=== PATIENT | female | born 1985 | race Caucasian/White ===

== ENCOUNTER 2017-05-14 16:57 | Emergency (ER) | payer OTHER, BC ==
[2017-05-14] MEDS ORDERED: Naproxen 500 MG Tab PO ONE (18:47)
--- NOTE | 2017-05-14 18:50 | EDM.PDOC ---
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, painful anteriorly, no radiation Left Knee Pain Score (Numeric/FACES): 7 - Related Data Allergies Allergy/AdvReac Type Severity Reaction Status Date / Time amoxicillin [From Augmentin] Allergy Rash Verified 05/14/17 17:32 clavulanic acid Allergy Rash Verified 05/14/17 17:32 [From Augmentin] Home Meds: Home Meds Naproxen [Naprosyn] 500 mg PO BID #60 tablet 05/14/17 [Rx] Past Medical History HEENT History: Reports: Impaired Vision Other HEENT History: wears glasses Respiratory History: Reports: Asthma Psychiatric History: Reports: Anxiety - Infectious Disease History Infectious Disease History: Reports: Chicken Pox - Past Surgical History GI Surgical History: Reports: Cholecystectomy Social & Family History - Family History Family Medical History: Noncontributory - Tobacco Use Smoking Status *Q: Current Every Day Smoker Years of Tobacco use: 18 Packs/Tins Daily: 1 - Caffeine Use Caffeine Use: Reports: Coffee - Recreational Drug Use Recreational Drug Use: Yes Drug Use in Last 12 Months: Yes Recreational Drug Type: Reports: Marijuana/Hashish Recreational Drug Use Frequency: Weekly Review of Systems - Review of Systems Review Of Systems: See Below Constitutional: Reports: No Symptoms Eyes: Reports: No Symptoms Ears: Reports: No Symptoms Nose: Reports: No Symptoms Mouth/Throat: Reports: No Symptoms Respiratory: Reports: No Symptoms Cardiovascular: Reports: No Symptoms GI/Abdominal: Reports: No Symptoms Genitourinary: Reports: No Symptoms Musculoskeletal: Reports: Other (RLE pain) Skin: Reports: No Symptoms Neurological: Reports: No Symptoms Psychiatric: Reports: No Symptoms ED EXAM, GENERAL - Physical Exam Exam: See Below Exam Limited By: No Limitations General Appearance: Alert, WD/WN, No Apparent Distress Extremities: Other (slight abrasion RLE above ankle anteriorly, 1-2+ tender at R tibial plateau, MCL/LCL and patella and joint line all NT, no lac, no red, no STS, XR neg) Course - Vital Signs Last Recorded V/S: Last Vital Signs Temp 36.8 C 05/14/17 17:34 Pulse 81 05/14/17 18:46 Resp 14 05/14/17 18:46 BP 119/67 05/14/17 18:46 Pulse Ox 98 05/14/17 18:46 - Orders/Labs/Meds Orders: Active Orders 24 hr Category Date Time Status Knee 3V Lt [CR] Stat Exams 05/14/17 18:15 Ordered Meds: Medications Discontinued Medications Generic Name Dose Route Start Last Admin Trade Name Cyrus PRN Reason Stop Dose Admin Naproxen 500 mg 05/14/17 18:47 Naprosyn PO 05/14/17 18:48 ONETIME ONE Departure - Departure Time of Disposition: 18:46 Disposition: Home, Self-Care 01 Condition: Good Clinical Impression: Contusion of right tibia - Discharge Information Prescriptions: Naproxen [Naprosyn] 500 mg PO BID #60 tablet Instructions: Contusion Referrals: PCP,None [Primary Care Provider] - Forms: ED Department Discharge Additional Instructions: Use ice for 10 minutes every 2 hours tonight and 4 times tomorrow. Take naprosyn 500 mg 1 tab 2 times a day for 2 weeks, longer if needed. No work tomorrow. May work in 2 days. See your doctor in 2 days. - My Orders Last 24 Hours: My Active Orders 05/14/17 18:15 Knee 3V Lt [CR] Stat - Assessment/Plan Last 24 Hours: My Active Orders 05/14/17 18:15 Knee 3V Lt [CR] Stat
--- NOTE | 2017-05-15 12:25 | CR ---
INDICATION: Left tibial plateau struck with a metal pole. LEFT KNEE: Four views of the left knee revealed no evidence of a fracture, dislocation, or other significant bone or joint abnormality. [facility]
== END 2017-05-14 18:48 | disposition home or self-care (01) ==
LOC: FB.ED 16:57
DX: S80.12XA Contusion of left lower leg, initial encounter (principal); F17.210 Nicotine dependence, cigarettes, uncomplicated; Z88.1 Allergy status to other antibiotic agents; W22.8XXA Striking against or struck by other objects, initial encounter; Y99.0 Civilian activity done for income or pay
CPT/HCPCS: 73562-LT; 99000; 99283

== ENCOUNTER 2017-06-05 08:53 | Emergency (ER) | payer BC, MEDICAID, OTHER ==
--- NOTE | 2017-06-05 09:27 | EDM.PDOC ---
ED HPI GENERAL MEDICAL PROBLEM - General Chief Complaint: Chest Pain Stated Complaint: CHEST PAIN FAST HEART Time Seen by Provider: 06/05/17 08:53 Source of Information: Reports: Patient History Limitations: Reports: No Limitations - History of Present Illness INITIAL COMMENTS - FREE TEXT/NARRATIVE: 31 years old w f -smoker-came to the ed after she felt dizzy at work with C/P 9/ 10. 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 Pt was moving last weekend and was lifting a few furniture. C/P is constant but worse ( a little) when taking a deep breath. No trauma. 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.) Associated Symptoms: Reports: Other (dizzy) L anterior chest Pain Score (Numeric/FACES): 5 - Related Data Allergies Allergy/AdvReac Type Severity Reaction Status Date / Time amoxicillin [From Augmentin] Allergy Rash Verified 06/05/17 09:13 clavulanic acid Allergy Rash Verified 06/05/17 09:13 [From Augmentin] Home Meds: Home Meds Cetirizine [ZyrTEC] 10 mg PO DAILY 06/05/17 [History] atorvaSTATin [Lipitor] 10 mg PO BEDTIME 06/05/17 [History] Past Medical History HEENT History: Reports: Impaired Vision Other HEENT History: wears glasses Respiratory History: Reports: Asthma Psychiatric History: Reports: Anxiety - Infectious Disease History Infectious Disease History: Reports: Chicken Pox - Past Surgical History GI Surgical History: Reports: Cholecystectomy Social & Family History - Family History Family Medical History: Noncontributory - Tobacco Use Smoking Status *Q: Current Every Day Smoker Years of Tobacco use: 18 Packs/Tins Daily: 1 - Caffeine Use Caffeine Use: Reports: Coffee - Recreational Drug Use Recreational Drug Use: Yes Drug Use in Last 12 Months: Yes Recreational Drug Type: Reports: Marijuana/Hashish Recreational Drug Use Frequency: Weekly ED ROS GENERAL - Review of Systems Review Of Systems: See Below Constitutional: Reports: No Symptoms HEENT: Reports: No Symptoms Respiratory: Reports: No Symptoms Cardiovascular: Reports: Chest Pain Endocrine: Reports: No Symptoms GI/Abdominal: Reports: No Symptoms : Reports: No Symptoms Musculoskeletal: Reports: No Symptoms Skin: Reports: No Symptoms Neurological: Reports: No Symptoms Psychiatric: Reports: No Symptoms Hematologic/Lymphatic: Reports: No Symptoms Immunologic: Reports: No Symptoms ED EXAM, GENERAL - Physical Exam Exam: See Below Exam Limited By: No Limitations General Appearance: Alert, WD/WN, Mild Distress, Obese Eye Exam: Bilateral Eye: Normal Inspection Ears: Normal External Exam Ear Exam: Bilateral Ear: Auricle Normal Nose: Normal Inspection, Normal Mucosa Throat/Mouth: Normal Inspection, Normal Lips Head: Atraumatic, Normocephalic Neck: Normal Inspection Respiratory/Chest: No Respiratory Distress, Lungs Clear, Normal Breath Sounds, No Accessory Muscle Use, Other (mildly tender ant chest wall) Cardiovascular: Normal Peripheral Pulses, Regular Rate, Rhythm, No Edema, No Gallop Peripheral Pulses: 1+: Radial (R), Femoral (L) GI/Abdominal: Normal Bowel Sounds, Soft, Non-Tender, No Organomegaly (Female) Exam: Deferred Rectal (Female) Exam: Deferred Back Exam: Normal Inspection, Full Range of Motion Extremities: Normal Inspection, Normal Range of Motion, Non-Tender, No Pedal Edema, Normal Capillary Refill Neurological: Alert, Oriented, CN II-XII Intact, Normal Cognition, Normal Gait Psychiatric: Normal Affect, Normal Mood Skin Exam: Warm, Dry, Intact, Normal Color, No Rash Lymphatic: No Adenopathy EKG INTERPRETATION EKG Date: 06/05/17 Time: 09:05 Rhythm: NSR Rate (Beats/Min): 95 Canvas: Normal P-Wave: Present QRS: Normal ST-T: Normal QT: Normal Comparison: NA - No Prior EKG Course - Vital Signs Text/Narrative:: 31 years old w f -smoker-came to the ed after she felt dizzy at work with C/P 9/ 10. 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 Pt was moving last weekend and was lifting a few furniture. C/P is constant but worse ( a little) when taking a deep breath. No trauma. BP: 116/69 pulse 98 RR 17 Pulse ox 99 PE: Obese 31 y.o.w.f wit cp and dizziness, subsiding in the ED labs: CBC, BMP trop and D Dimer were neg. Imaging: Not indicated ECG: NSR, no acute ST/T wave elevation Riskfactors: Pos FH of CAD, High cholesterol, obese, tobacco use. Impression: Atypical Chest pain Tx: ASA, Toradol, Zofran 9.45 am: Consultation: Dr. Burkett: If Troponin and D dImer neg, Stress Test in clinic tomorrow. Does not accept patient for admission Reexam: Improved, Nausea subsided C/P was 09/08 with insp on D/C Plan: D/C with instructions Last Recorded V/S: Last Vital Signs Temp 36.6 C 06/05/17 08:55 Pulse 92 06/05/17 08:55 Resp 18 06/05/17 10:15 BP 101/62 06/05/17 10:15 Pulse Ox 97 06/05/17 10:15 - Orders/Labs/Meds Orders: Active Orders 24 hr Category Date Time Status EKG Documentation Completion [RC] ASDIRECTED Care 06/05/17 09:20 Active EKG 12 Lead [EK] Routine Ther 06/05/17 09:20 Ordered Labs: Laboratory Tests 06/05/17 06/05/17 06/05/17 Range/Units 09:05 09:05 09:05 WBC 8.4 (4.5-12.0) X10-3/uL RBC 4.71 (3.23-5.20) x10(6)uL Hgb 15.1 (11.5-15.5) g/dL Hct 43.7 (30.0-51.3) % MCV 92.9 (80-96) fL MCH 32.0 (27.7-33.6) pg MCHC 34.5 (32.2-35.4) g/dL RDW 12.2 (11.5-15.5) % Plt Count 214 (125-369) X10(3)uL MPV 9.4 (7.4-10.4) fL Neut % (Auto) 70.3 (46-82) % Lymph % (Auto) 22.0 (13-37) % [place] % (Auto) 5.0 (4-12) % Eos % (Auto) 2 (1.0-5.0) % Baso % (Auto) 1 (0-2) % Neut # (Auto) 5.8 (1.6-8.3) # Lymph # (Auto) 1.9 (0.6-5.0) # [place] # (Auto) 0.4 (0.0-1.3) # Eos # (Auto) 0.2 (0.0-0.8) # Baso # (Auto) 0.1 (0.0-0.2) # PT (8.7-11.1) INR (0.89-1.13) D-Dimer, Quantitative 158 (100-400) ng/mL Sodium 138 (135-145) mmol/L Potassium 4.0 (3.5-5.3) mmol/L Chloride 106 (100-110) mmol/L Carbon Dioxide 25 (21-32) mmol/L BUN 12 (7-18) mg/dL Creatinine 1.0 (0.55-1.02) mg/dL Est Cr Clr Drug Dosing 75.61 mL/min Estimated GFR (MDRD) > 60 (>60) BUN/Creatinine Ratio 12.0 (9-20) Glucose 105 (80-116) mg/dL Calcium 9.2 (8.6-10.2) mg/dL Troponin I (<0.017-0.056) ng/mL 06/05/17 06/05/17 Range/Units 09:05 09:05 WBC (4.5-12.0) X10-3/uL RBC (3.23-5.20) x10(6)uL Hgb (11.5-15.5) g/dL Hct (30.0-51.3) % MCV (80-96) fL MCH (27.7-33.6) pg MCHC (32.2-35.4) g/dL RDW (11.5-15.5) % Plt Count (125-369) X10(3)uL MPV (7.4-10.4) fL Neut % (Auto) (46-82) % Lymph % (Auto) (13-37) % [place] % (Auto) (4-12) % Eos % (Auto) (1.0-5.0) % Baso % (Auto) (0-2) % Neut # (Auto) (1.6-8.3) # Lymph # (Auto) (0.6-5.0) # [place] # (Auto) (0.0-1.3) # Eos # (Auto) (0.0-0.8) # Baso # (Auto) (0.0-0.2) # PT 10.5 (8.7-11.1) INR 1.04 (0.89-1.13) D-Dimer, Quantitative (100-400) ng/mL Sodium (135-145) mmol/L Potassium (3.5-5.3) mmol/L Chloride (100-110) mmol/L Carbon Dioxide (21-32) mmol/L BUN (7-18) mg/dL Creatinine (0.55-1.02) mg/dL Est Cr Clr Drug Dosing mL/min Estimated GFR (MDRD) (>60) BUN/Creatinine Ratio (9-20) Glucose (80-116) mg/dL Calcium (8.6-10.2) mg/dL Troponin I < 0.017 L (<0.017-0.056) ng/mL Meds: Medications Discontinued Medications Generic Name Dose Route Start Last Admin Trade Name Freq PRN Reason Stop Dose Admin Aspirin 324 mg 06/05/17 09:29 06/05/17 09:15 Aspirin PO 06/05/17 09:30 324 mg ONETIME ONE Administration Sodium Chloride 1,000 mls @ 125 mls/hr 06/05/17 09:30 06/05/17 09:49 Normal Saline IV 125 mls/hr ASDIRECTED LEMUEL Administration Ketorolac Tromethamine 30 mg 06/05/17 10:08 06/05/17 10:12 Toradol IVPUSH 06/05/17 10:09 30 mg ONETIME ONE Administration Ondansetron HCl 8 mg 06/05/17 10:08 06/05/17 10:12 Zofran Odt PO 06/05/17 10:09 8 mg ONETIME ONE Administration Departure - Departure Time of Disposition: 10:06 Disposition: Home, Self-Care 01 Condition: Good Clinical Impression: Atypical chest pain Instructions: Nonspecific Chest Pain Referrals: PCP,None [Primary Care Provider] - Forms: ED Department Discharge, ED Return to Work/School Form Additional Instructions: Please continue your current meds. Please quit tobacco use, please follow up with your primary medical doctor in morning for a cardiac stress test, call for appt. Please come back to the ER if your symptoms get worse acutely - My Orders Last 24 Hours: My Active Orders 06/05/17 09:20 EKG Documentation Completion [RC] ASDIRECTED EKG 12 Lead [EK] Routine - Assessment/Plan Last 24 Hours: My Active Orders 06/05/17 09:20 EKG Documentation Completion [RC] ASDIRECTED EKG 12 Lead [EK] Routine
[2017-06-05] MEDS ORDERED: Aspirin 81 MG Tab.Chew PO ONE (09:29)
[2017-06-05] MEDS ORDERED: Sodium Chloride 0.9% 1,000 ML IV SCH (09:30)
[2017-06-05] MEDS ORDERED: Ketorolac 30 MG/ML SDV IVPUSH ONE (10:08)
[2017-06-05] MEDS ORDERED: Ondansetron 8 MG Tab.DIS PO ONE (10:08)
== END 2017-06-05 10:27 | disposition home or self-care (01) ==
LOC: FB.ED 08:53
DX: R07.89 Other chest pain (principal); F17.210 Nicotine dependence, cigarettes, uncomplicated; Z88.1 Allergy status to other antibiotic agents
CPT/HCPCS: 36415; 80048; 84484; 85025; 85379; 85610; 93005; 96361; 96374; 99285; A9270; J1885; J7040

== ENCOUNTER 2017-06-27 10:12 | Emergency (ER) | payer BC, MEDICAID, OTHER ==
--- NOTE | 2017-06-27 10:37 | EDM.PDOC ---
ED HPI GENERAL MEDICAL PROBLEM - General Chief Complaint: Gastrointestinal Problem Stated Complaint: stomach flu Time Seen by Provider: 06/27/17 10:12 Source of Information: Reports: Patient History Limitations: Reports: No Limitations - History of Present Illness INITIAL COMMENTS - FREE TEXT/NARRATIVE: 31 y.o.smoker came to the ed due to 8 MS since yesterday with nausea. Pt did not have a BM since 4 am. But felt nauseated. No other acute med issues. Pt stated she has no money to buy imodium. BP 109/80 pulse 109 Temp 36.8 pulse ox 97% on RA Onset Date: 06/26/17 Onset Time: 08:00 Duration: Day(s):, Intermittent Location: Reports: Abdomen Quality: Reports: Ache Severity: Mild Improves with: Reports: Rest Worsens with: Reports: Movement Context: Reports: Other (N/V/D none since arrival to the ED) - Related Data Allergies Allergy/AdvReac Type Severity Reaction Status Date / Time amoxicillin [From Augmentin] Allergy Rash Verified 06/27/17 10:31 clavulanic acid Allergy Rash Verified 06/27/17 10:31 [From Augmentin] Home Meds: Home Meds atorvaSTATin [Lipitor] 10 mg PO BEDTIME 06/05/17 [History] Albuterol [Proventil HFA] 6.7 gm INH Q4H PRN 06/27/17 [History] Loperamide [Imodium] 2 mg PO Q6H PRN #8 cap 06/27/17 [Rx] Ondansetron [Zofran ODT] 4 mg PO Q6H PRN #16 tab.dis 06/27/17 [Rx] Past Medical History HEENT History: Reports: Impaired Vision Other HEENT History: wears glasses Cardiovascular History: Reports: High Cholesterol Respiratory History: Reports: Asthma Gastrointestinal History: Reports: Cholelithiasis, GERD Genitourinary History: Reports: None 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 - Infectious Disease History Infectious Disease History: Reports: Chicken Pox - Past Surgical History GI Surgical History: Reports: Cholecystectomy Social & Family History - Family History Family Medical History: Noncontributory - Tobacco Use Smoking Status *Q: Current Every Day Smoker Years of Tobacco use: 18 Packs/Tins Daily: 1 - Caffeine Use Caffeine Use: Reports: Coffee - Recreational Drug Use Recreational Drug Use: Yes Drug Use in Last 12 Months: Yes Recreational Drug Type: Reports: Marijuana/Hashish Recreational Drug Use Frequency: Weekly ED ROS GENERAL - Review of Systems Review Of Systems: See Below Constitutional: Reports: No Symptoms HEENT: Reports: No Symptoms Respiratory: Reports: No Symptoms Cardiovascular: Reports: No Symptoms Endocrine: Reports: No Symptoms GI/Abdominal: Reports: Diarrhea : Reports: No Symptoms Musculoskeletal: Reports: No Symptoms Skin: Reports: No Symptoms Neurological: Reports: No Symptoms Psychiatric: Reports: No Symptoms Hematologic/Lymphatic: Reports: No Symptoms Immunologic: Reports: No Symptoms ED EXAM, GI/ABD - Physical Exam Exam: See Below Exam Limited By: No Limitations General Appearance: Alert, WD/WN, Mild Distress Eyes: Bilateral: Normal Appearance Ears: Normal External Exam Nose: Normal Inspection Throat/Mouth: Normal Inspection Head: Atraumatic, Normocephalic Neck: Normal Inspection, Supple, Non-Tender Respiratory/Chest: No Respiratory Distress, Lungs Clear, Normal Breath Sounds Cardiovascular: Normal Peripheral Pulses, Regular Rate, Rhythm, No Edema, No JVD , No Murmur, No Rub GI/Abdominal Exam: Normal Bowel Sounds, Soft, Non-Tender, No Organomegaly, No Mass, Pelvis Stable (Female) Exam: Deferred Rectal (Female) Exam: Deferred Back Exam: Normal Inspection Extremities: Normal Inspection Neurological: Alert, Oriented, CN II-XII Intact, Normal Cognition, Normal Gait Psychiatric: Normal Affect, Normal Mood Skin Exam: Warm, Dry, Intact, Normal Color, No Rash Lymphatic: No Adenopathy Course - Vital Signs Text/Narrative:: 31 y.o.smoker came to the ed due to 8 MS since yesterday with nausea. Pt did not have a BM since 4 am. But felt nauseated. No other acute med issues. Pt stated she has no money to buy imodium. BP 109/80 pulse 109 Temp 36.8 pulse ox 97% on RA PE: WNWD W F NAD C/O Nausea Impression: Gastroenteritis Tx: Zofran. Pt was not able to pass stool Reexam: Improved Plan: D/C with instructions Last Recorded V/S: Last Vital Signs Temp 36.8 C 06/27/17 10:25 Pulse Resp 17 06/27/17 10:25 BP 104/74 06/27/17 10:50 Pulse Ox 97 06/27/17 10:25 - Orders/Labs/Meds Meds: Medications Discontinued Medications Generic Name Dose Route Start Last Admin Trade Name Freq PRN Reason Stop Dose Admin Ondansetron HCl 8 mg 06/27/17 10:32 06/27/17 10:43 Zofran Odt PO 06/27/17 10:33 8 mg ONETIME ONE Administration Departure - Departure Time of Disposition: 10:34 Disposition: Home, Self-Care 01 Condition: Good Clinical Impression: Diarrhea Qualifiers: Diarrhea type: unspecified type Qualified Code(s): R19.7 - Diarrhea, unspecified - Discharge Information Prescriptions: Loperamide [Imodium] 2 mg PO Q6H PRN #8 cap PRN Reason: loose stool Ondansetron [Zofran ODT] 4 mg PO Q6H PRN #16 tab.dis PRN Reason: Nausea Instructions: Nausea, Adult, Viral Gastroenteritis, Adult Referrals: PCP,None [Primary Care Provider] - Forms: ED Department Discharge, ED Return to Work/School Form Additional Instructions: Collect stool sample and bring back to hospital for testing. Continue to drink plenty of fluids. Please take Zofran for nausea, please f/u, come back to the ED if your symptoms get worse acutely.
[2017-06-27] MEDS: Ondansetron 8 MG Tab.DIS PO ONE (10:43)
== END 2017-06-27 10:53 | disposition home or self-care (01) ==
LOC: FB.ED 10:12
DX: K52.9 Noninfective gastroenteritis and colitis, unspecified (principal); E78.00 Pure hypercholesterolemia, unspecified; Z88.1 Allergy status to other antibiotic agents; Z88.8 Allergy status to other drugs, medicaments and biological substances; F17.210 Nicotine dependence, cigarettes, uncomplicated
CPT/HCPCS: 99283; A9270

== ENCOUNTER 2017-07-24 23:00 | Emergency (ER) | payer MEDICAID ==
--- NOTE | 2017-07-25 00:18 | EDM.PDOC ---
ED HPI GENERAL MEDICAL PROBLEM - General Chief Complaint: Gastrointestinal Problem Stated Complaint: NOT FEELING WELL Time Seen by Provider: 07/24/17 23:00 Source of Information: Reports: Patient, Family History Limitations: Reports: No Limitations - History of Present Illness INITIAL COMMENTS - FREE TEXT/NARRATIVE: 31 y.o.w.f s/o Histerectomy, came to the ed with more then 2 ms today. No Blood in stool, no Diet change. No nausea, no dizziness or any other acute medical issues. BP 126/77 HR 113 Temp 36.8 pulse ox 98% on RA Onset Date: 07/24/17 Onset Time: 08:00 Duration: Day(s): Location: Reports: Abdomen Quality: Reports: Other (loose stool) Severity: Moderate Improves with: Reports: None Worsens with: Reports: None Context: Reports: Other (20 BMs today) Associated Symptoms: Reports: No Other Symptoms whole body Pain Score (Numeric/FACES): 8 - Related Data Allergies Allergy/AdvReac Type Severity Reaction Status Date / Time amoxicillin [From Augmentin] Allergy Rash Verified 07/24/17 23:11 clavulanic acid Allergy Rash Verified 07/24/17 23:11 [From Augmentin] Home Meds: Home Meds atorvaSTATin [Lipitor] 5 mg PO BEDTIME 06/05/17 [History] Albuterol [Proventil HFA] 6.7 gm INH Q4H PRN 06/27/17 [History] Loperamide [Imodium] 2 mg PO Q6H PRN #8 cap 06/27/17 [Rx] Ondansetron [Zofran ODT] 4 mg PO Q6H PRN #16 tab.dis 06/27/17 [Rx] Past Medical History HEENT History: Reports: Impaired Vision Other HEENT History: wears glasses Cardiovascular History: Reports: High Cholesterol Other Cardiovascular History: low BP Respiratory History: Reports: Asthma Gastrointestinal History: Reports: Cholelithiasis, GERD Genitourinary History: Reports: None 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 - Infectious Disease History Infectious Disease History: Reports: Chicken Pox - Past Surgical History GI Surgical History: Reports: Cholecystectomy Female Surgical History: Reports: Hysterectomy, Tubal Ligation Social & Family History - Family History Family Medical History: Noncontributory - Tobacco Use Smoking Status *Q: Current Every Day Smoker Years of Tobacco use: 18 Packs/Tins Daily: 1 - Caffeine Use Caffeine Use: Reports: Coffee, Energy Drinks, Soda, Tea - Recreational Drug Use Recreational Drug Use: No Drug Use in Last 12 Months: Yes Recreational Drug Type: Reports: Marijuana/Hashish Recreational Drug Use Frequency: Weekly ED ROS GENERAL - Review of Systems Review Of Systems: See Below Constitutional: Reports: No Symptoms HEENT: Reports: No Symptoms Respiratory: Reports: No Symptoms Cardiovascular: Reports: No Symptoms Endocrine: Reports: No Symptoms GI/Abdominal: Reports: Other (diarrhea) : Reports: No Symptoms Musculoskeletal: Reports: No Symptoms Skin: Reports: No Symptoms Neurological: Reports: No Symptoms Psychiatric: Reports: No Symptoms Hematologic/Lymphatic: Reports: No Symptoms Immunologic: Reports: No Symptoms ED EXAM, GI/ABD - Physical Exam Exam: See Below Exam Limited By: No Limitations General Appearance: Alert, WD/WN, No Apparent Distress Eyes: Bilateral: Normal Appearance Ears: Normal External Exam, Normal Canal Nose: Normal Inspection, Normal Mucosa Throat/Mouth: Normal Inspection, Normal Lips, Normal Oropharynx, Normal Voice, No Airway Compromise Head: Atraumatic, Normocephalic Neck: Normal Inspection, Supple, Non-Tender Respiratory/Chest: No Respiratory Distress, Lungs Clear, Normal Breath Sounds Cardiovascular: Normal Peripheral Pulses, Regular Rate, Rhythm, No Edema GI/Abdominal Exam: Normal Bowel Sounds (Female) Exam: Deferred Rectal (Female) Exam: Deferred Back Exam: Normal Inspection Extremities: Normal Inspection, Normal Range of Motion, Non-Tender, No Pedal Edema Neurological: Alert, Oriented, CN II-XII Intact, Normal Cognition, Normal Gait, No Motor/Sensory Deficits Psychiatric: Normal Affect Skin Exam: Warm, Dry, Intact Lymphatic: No Adenopathy Course - Vital Signs Text/Narrative:: 31 y.o.w.f s/o Histerectomy, came to the ed with more then 2 ms today. No Blood in stool, no Diet change. No nausea, no dizziness or any other acute medical issues. BP 126/77 HR 113 Temp 36.8 pulse ox 98% on RA PE: WNWD WF NAD Labs: CBC, BMP and UA neg Cx is pending Impression: Diarrhea, cause not determined Tx: Imodium Reexam: Improved Plan: D/C with instructions Last Recorded V/S: Last Vital Signs Temp 36.9 C 07/25/17 00:23 Pulse 114 H 07/25/17 00:23 Resp 17 07/25/17 00:23 BP 106/74 07/25/17 00:23 Pulse Ox 98 07/25/17 00:23 - Orders/Labs/Meds Orders: Active Orders 24 hr Category Date Time Status CULTURE-STOOL [MREF] Stat Lab 07/25/17 00:09 Ordered LACTOFERRIN, FECAL BY LAVERN Stat Lab 07/24/17 23:23 Received Labs: Laboratory Tests 07/24/17 07/24/17 07/24/17 Range/Units 23:35 23:35 23:49 WBC 7.6 (4.5-12.0) X10-3/uL RBC 4.79 (3.23-5.20) x10(6)uL Hgb 14.7 (11.5-15.5) g/dL Hct 44.4 (30.0-51.3) % MCV 92.7 (80-96) fL MCH 30.7 (27.7-33.6) pg MCHC 33.1 (32.2-35.4) g/dL RDW 12.0 (11.5-15.5) % Plt Count 211 (125-369) X10(3)uL MPV 9.3 (7.4-10.4) fL Neut % (Auto) 71.3 (46-82) % Lymph % (Auto) 22.5 (13-37) % [place] % (Auto) 4.8 (4-12) % Eos % (Auto) 1 (1.0-5.0) % Baso % (Auto) 1 (0-2) % Neut # (Auto) 5.4 (1.6-8.3) # Lymph # (Auto) 1.7 (0.6-5.0) # [place] # (Auto) 0.4 (0.0-1.3) # Eos # (Auto) 0.1 (0.0-0.8) # Baso # (Auto) 0.0 (0.0-0.2) # Sodium 142 (135-145) mmol/L Potassium 3.5 (3.5-5.3) mmol/L Chloride 107 (100-110) mmol/L Carbon Dioxide 24 (21-32) mmol/L BUN 10 (7-18) mg/dL Creatinine 0.9 (0.55-1.02) mg/dL Est Cr Clr Drug Dosing TNP Estimated GFR (MDRD) > 60 (>60) BUN/Creatinine Ratio 11.1 (9-20) Glucose 117 H (80-116) mg/dL Calcium 8.6 (8.6-10.2) mg/dL Urine Color Yellow (YELLOW) Urine Appearance Clear (CLEAR) Urine pH 5.0 (5.0-6.5) Ur Specific [place] 1.025 (1.010-1.025) Urine Protein Negative (NEGATIVE) mg/dL Urine Glucose (UA) Normal (NEGATIVE) mg/dL Urine Ketones Negative (NEGATIVE) mg/dL Urine Occult Blood Trace (NEGATIVE) Urine Nitrite Negative (NEGATIVE) Urine Bilirubin Small H (NEGATIVE) Urine Urobilinogen Normal (NEGATIVE) mg/dL Ur Leukocyte Esterase Negative (NEGATIVE) Urine RBC 0-5 (0) Urine WBC 0-5 (0) Ur Squamous Epith Cells Moderate H (NS,R,O) Urine Bacteria Few H (NS) Meds: Medications Discontinued Medications Generic Name Dose Route Start Last Admin Trade Name Freq PRN Reason Stop Dose Admin Loperamide HCl 4 mg 07/25/17 00:13 07/25/17 00:19 Imodium PO 07/25/17 00:14 4 mg ASDIRECTED STA Administration Departure - Departure Time of Disposition: 00:18 Disposition: Home, Self-Care 01 Condition: Good Clinical Impression: Diarrhea Qualifiers: Diarrhea type: unspecified type Qualified Code(s): R19.7 - Diarrhea, unspecified - Discharge Information Instructions: Diarrhea, Adult Referrals: PCP,None [Primary Care Provider] - Forms: ED Department Discharge, ED Return to Work/School Form Additional Instructions: Please increase water intake, please take imodium as instructed, please f/u, come back if your symptoms get worse acutely. - My Orders Last 24 Hours: My Active Orders 07/24/17 23:23 LACTOFERRIN, FECAL BY LAVERN Stat 07/25/17 00:09 CULTURE-STOOL [MREF] Stat - Assessment/Plan Last 24 Hours: My Active Orders 07/24/17 23:23 LACTOFERRIN, FECAL BY LAVERN Stat 07/25/17 00:09 CULTURE-STOOL [MREF] Stat
[2017-07-25] MEDS: Loperamide 2 MG Cap PO STA (00:19)
== END 2017-07-25 00:26 | disposition home or self-care (01) ==
LOC: FB.ED 23:00
DX: R19.7 Diarrhea, unspecified (principal); E78.00 Pure hypercholesterolemia, unspecified; J45.909 Unspecified asthma, uncomplicated; K21.9 Gastro-esophageal reflux disease without esophagitis; F17.210 Nicotine dependence, cigarettes, uncomplicated; Z88.1 Allergy status to other antibiotic agents
CPT/HCPCS: 36415; 80048; 81001; 83630; 85025; 99284; A9270

== ENCOUNTER 2017-12-11 16:59 | Emergency (ER) | payer MEDICAID ==
--- NOTE | 2017-12-11 17:29 | EDM.PDOC ---
ED HPI GENERAL MEDICAL PROBLEM - General Chief Complaint: Gastrointestinal Problem Stated Complaint: LOWER ABD PAIN Time Seen by Provider: 12/11/17 17:15 Source of Information: Reports: Patient History Limitations: Reports: No Limitations - History of Present Illness INITIAL COMMENTS - FREE TEXT/NARRATIVE: Tammy comes into [facility] ED with a 48 hr hx of pelvic pain characterized as sharp and crampy involving both the R&LLQs. Pain does not radiate into the back , and is not positional. There are no corresponding sxs of dysuria, frequency, vaginal discharge, diarrhea or flatulence. There has been more recent nausea today, with no emesis. She has a surgical menopause, and is off HRP. There has been no fever, chills, or sweats. She took 2 Naproxen today for pain control. lower abdomen Pain Score (Numeric/FACES): 7 - Related Data Allergies Allergy/AdvReac Type Severity Reaction Status Date / Time amoxicillin [From Augmentin] Allergy Rash Verified 12/11/17 17:10 clavulanic acid Allergy Rash Verified 12/11/17 17:10 [From Augmentin] Home Meds: Home Meds Albuterol [Proventil HFA] 6.7 gm INH Q4H PRN 06/27/17 [History] Loperamide [Imodium] 2 mg PO Q6H PRN #8 cap 06/27/17 [Rx] Ondansetron [Zofran ODT] 4 mg PO Q6H PRN #16 tab.dis 06/27/17 [Rx] Cetirizine [ZyrTEC] 10 mg PO DAILY 12/11/17 [History] Pravastatin [Pravachol] 40 mg PO BEDTIME 12/11/17 [History] Past Medical History HEENT History: Reports: Impaired Vision Other HEENT History: wears glasses Cardiovascular History: Reports: High Cholesterol Other Cardiovascular History: low BP Respiratory History: Reports: Asthma Gastrointestinal History: Reports: Cholelithiasis, GERD Genitourinary History: Reports: None [employer]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 - Infectious Disease History Infectious Disease History: Reports: Chicken Pox - Past Surgical History GI Surgical History: Reports: Cholecystectomy Female Surgical History: Reports: Hysterectomy, Tubal Ligation Social & Family History - Family History Family Medical History: Noncontributory - Caffeine Use Caffeine Use: Reports: Coffee, Energy Drinks, Soda, Tea ED ROS GENERAL - Review of Systems Review Of Systems: See Below Constitutional: Reports: Malaise, Decreased Appetite HEENT: Reports: No Symptoms Respiratory: Reports: No Symptoms Cardiovascular: Reports: No Symptoms Endocrine: Reports: No Symptoms GI/Abdominal: Reports: Abdominal Pain, Decreased Appetite, Nausea, Vomiting : Reports: No Symptoms Musculoskeletal: Reports: No Symptoms Skin: Reports: No Symptoms Neurological: Reports: No Symptoms Psychiatric: Reports: No Symptoms Hematologic/Lymphatic: Reports: No Symptoms Immunologic: Reports: No Symptoms ED EXAM, GI/ABD - Physical Exam Exam: See Below Exam Limited By: No Limitations General Appearance: Alert, WD/WN, Mild Distress, Obese Eyes: Bilateral: Normal Appearance, EOMI Ears: Normal External Exam Nose: Normal Inspection Throat/Mouth: Normal Inspection, Normal Lips, Normal Teeth, Normal Gums, Normal Oropharynx, Normal Voice, No Airway Compromise Head: Normocephalic Neck: Normal Inspection, Supple, Non-Tender, Full Range of Motion Respiratory/Chest: Lungs Clear, Normal Breath Sounds, Chest Non-Tender Cardiovascular: Normal Peripheral Pulses, Regular Rate, Rhythm, No Murmur GI/Abdominal Exam: Normal Bowel Sounds, Soft, No Organomegaly, No Distention, No Mass, Guarding (R&LLQ just above the pelvic brim) (Female) Exam: Normal External Exam, Normal Bimanual Exam (surgical pelvic, exam performed with RN in attendance) Rectal (Female) Exam: Normal Exam Back Exam: Normal Inspection Extremities: Normal Inspection Neurological: Alert, Oriented, CN II-XII Intact, Normal Cognition, No Motor/ Sensory Deficits Psychiatric: Normal Affect, Anxious Skin Exam: Warm, Dry, Intact Lymphatic: No Adenopathy Course - Vital Signs Text/Narrative:: Tammy was assessed at the [facility] ED, and initial screening labs were all satisfactory. She consented to an ABD-PELVIC CT w contrast, and results were satisfactory. A surgical abdomen is not suspected at this time. In view of prior pelvic surgeries, adhesions could not be ruled out. Tammy deferred a surgical consult at this time, reporting that the Toradol 30 mg IV improved pain significantly. Last Recorded V/S: Last Vital Signs Temp 36.7 C 12/11/17 17:00 Pulse 99 12/11/17 17:00 Resp 18 12/11/17 17:00 BP 134/80 12/11/17 17:00 Pulse Ox 98 12/11/17 17:00 - Orders/Labs/Meds Orders: Active Orders 24 hr Category Date Time Status Abdomen Pelvis w Cont [CT] Stat Exams 12/11/17 18:26 Taken UA W/MICROSCOPIC [URIN] Stat Lab 12/11/17 17:33 Ordered Labs: Laboratory Tests 12/11/17 12/11/17 12/11/17 Range/Units 17:33 17:35 17:35 WBC 7.3 (4.5-12.0) X10-3/uL RBC 4.57 (3.23-5.20) x10(6)uL Hgb 14.6 (11.5-15.5) g/dL Hct 43.0 (30.0-51.3) % MCV 93.9 (80-96) fL MCH 31.8 (27.7-33.6) pg MCHC 33.9 (32.2-35.4) g/dL RDW 12.1 (11.5-15.5) % Plt Count 216 (125-369) X10(3)uL MPV 9.3 (7.4-10.4) fL Neut % (Auto) 56.7 (46-82) % Lymph % (Auto) 34.3 (13-37) % [place] % (Auto) 5.6 (4-12) % Eos % (Auto) 3 (1.0-5.0) % Baso % (Auto) 0 (0-2) % Neut # (Auto) 4.2 (1.6-8.3) # Lymph # (Auto) 2.5 (0.6-5.0) # [place] # (Auto) 0.4 (0.0-1.3) # Eos # (Auto) 0.2 (0.0-0.8) # Baso # (Auto) 0.0 (0.0-0.2) # Sodium 141 (135-145) mmol/L Potassium 3.5 (3.5-5.3) mmol/L Chloride 105 (100-110) mmol/L Carbon Dioxide 23 (21-32) mmol/L BUN 5 L (7-18) mg/dL Creatinine 0.9 (0.55-1.02) mg/dL Est Cr Clr Drug Dosing 83.23 mL/min Estimated GFR (MDRD) > 60 (>60) BUN/Creatinine Ratio 5.6 L (9-20) Glucose 168 H (80-116) mg/dL Lactic Acid (0.4-2.2) mmol/L Calcium 8.9 (8.6-10.2) mg/dL Total Bilirubin 0.2 (0.1-1.3) mg/dL AST 24 (5-25) IU/L ALT 39 H (12-36) U/L Alkaline Phosphatase 93 (56-112) IU/L Total Protein 7.1 (6.0-8.0) g/dL Albumin 3.5 (3.5-5.2) g/dL Globulin 3.6 g/dL Albumin/Globulin Ratio 1.0 Urine Color Yellow (YELLOW) Urine Appearance Clear (CLEAR) Urine pH 5.0 (5.0-6.5) Ur Specific [place] 1.025 (1.010-1.025) Urine Protein Negative (NEGATIVE) mg/dL Urine Glucose (UA) Normal (NEGATIVE) mg/dL Urine Ketones Negative (NEGATIVE) mg/dL Urine Occult Blood Negative (NEGATIVE) Urine Nitrite Negative (NEGATIVE) Urine Bilirubin Negative (NEGATIVE) Urine Urobilinogen 1 H (NEGATIVE) mg/dL Ur Leukocyte Esterase Negative (NEGATIVE) Urine RBC Not seen (0) Urine WBC 0-5 (0) Ur Squamous Epith Cells Few H (NS,R,O) Urine Bacteria Rare H (NS) 12/11/17 Range/Units 17:35 WBC (4.5-12.0) X10-3/uL RBC (3.23-5.20) x10(6)uL Hgb (11.5-15.5) g/dL Hct (30.0-51.3) % MCV (80-96) fL MCH (27.7-33.6) pg MCHC (32.2-35.4) g/dL RDW (11.5-15.5) % Plt Count (125-369) X10(3)uL MPV (7.4-10.4) fL Neut % (Auto) (46-82) % Lymph % (Auto) (13-37) % [place] % (Auto) (4-12) % Eos % (Auto) (1.0-5.0) % Baso % (Auto) (0-2) % Neut # (Auto) (1.6-8.3) # Lymph # (Auto) (0.6-5.0) # [place] # (Auto) (0.0-1.3) # Eos # (Auto) (0.0-0.8) # Baso # (Auto) (0.0-0.2) # Sodium (135-145) mmol/L Potassium (3.5-5.3) mmol/L Chloride (100-110) mmol/L Carbon Dioxide (21-32) mmol/L BUN (7-18) mg/dL Creatinine (0.55-1.02) mg/dL Est Cr Clr Drug Dosing mL/min Estimated GFR (MDRD) (>60) BUN/Creatinine Ratio (9-20) Glucose (80-116) mg/dL Lactic Acid 1.3 (0.4-2.2) mmol/L Calcium (8.6-10.2) mg/dL Total Bilirubin (0.1-1.3) mg/dL AST (5-25) IU/L ALT (12-36) U/L Alkaline Phosphatase (56-112) IU/L Total Protein (6.0-8.0) g/dL Albumin (3.5-5.2) g/dL Globulin g/dL Albumin/Globulin Ratio Urine Color (YELLOW) Urine Appearance (CLEAR) Urine pH (5.0-6.5) Ur Specific [place] (1.010-1.025) Urine Protein (NEGATIVE) mg/dL Urine Glucose (UA) (NEGATIVE) mg/dL Urine Ketones (NEGATIVE) mg/dL Urine Occult Blood (NEGATIVE) Urine Nitrite (NEGATIVE) Urine Bilirubin (NEGATIVE) Urine Urobilinogen (NEGATIVE) mg/dL Ur Leukocyte Esterase (NEGATIVE) Urine RBC (0) Urine WBC (0) Ur Squamous Epith Cells (NS,R,O) Urine Bacteria (NS) Meds: Medications Discontinued Medications Generic Name Dose Route Start Last Admin Trade Name Cyrus PRN Reason Stop Dose Admin Diatrizoate Meglum/Diatrizoate Sod 30 ml 12/11/17 19:45 12/11/17 19:46 Gastrografin 37% PO 12/11/17 19:46 30 ml . DIRECTED ONE Administration Iopamidol 100 ml 12/11/17 19:19 12/11/17 19:44 Isovue-370 (76%) IV 12/11/17 19:20 95 ml ONETIME ONE Administration Ketorolac Tromethamine 30 mg 12/11/17 20:01 12/11/17 20:04 Toradol IVPUSH 12/11/17 20:02 30 mg ONETIME ONE Administration Departure - Departure Time of Disposition: 20:52 Disposition: Home, Self-Care 01 Condition: Fair Clinical Impression: Pelvic pain - Discharge Information Instructions: Abdominal Pain, Adult, [id number] Referrals: Agustina Guido [employer] [Primary Care Provider] - Forms: ED Department Discharge Additional Instructions: Hydrate/drink fluids tonight. Take Ibuprofen for pain. See your primary care provider as necessary. - Problem List & Annotations (1) Pelvic pain SNOMED Code(s): 51419562 Code(s): R10.2 - PELVIC AND PERINEAL PAIN Status: Acute Current Visit: Yes Annotation/Comment:: I suggested liquids tonight, NSAIDs for pain if needed, and observation. She was advised to return to the ED if sxs escalate. - Problem List Review Problem List Initiated/Reviewed/Updated: Yes - My Orders Last 24 Hours: My Active Orders 12/11/17 17:33 UA W/MICROSCOPIC [URIN] Stat 12/11/17 18:26 Abdomen Pelvis w Cont [CT] Stat - Assessment/Plan Last 24 Hours: My Active Orders 12/11/17 17:33 UA W/MICROSCOPIC [URIN] Stat 12/11/17 18:26 Abdomen Pelvis w Cont [CT] Stat Plan: Follow up in ED or with PCP if sxs persist.
[2017-12-11] MEDS ORDERED: Iopamidol 755 Mg/ML 100 ML Bottle IV ONE (19:19)
[2017-12-11] MEDS ORDERED: Diatrizoate Meglumine/Diatrizoate Sodium 37% 30 ML Bottle PO ONE (19:45)
[2017-12-11] MEDS ORDERED: Ketorolac 30 MG/ML SDV IVPUSH ONE (20:01)
== END 2017-12-11 21:05 | disposition home or self-care (01) ==
LOC: FB.ED 16:59
DX: R10.2 Pelvic and perineal pain (principal); E78.00 Pure hypercholesterolemia, unspecified; K21.9 Gastro-esophageal reflux disease without esophagitis; Z88.1 Allergy status to other antibiotic agents; Z88.8 Allergy status to other drugs, medicaments and biological substances; Z79.899 Other long term (current) drug therapy
CPT/HCPCS: 36415; 74177; 80053; 81001; 83605; 85025; 96374; 99284; J1885; Q9963; Q9967

== ENCOUNTER 2022-02-18 00:54 | Emergency (ER) | payer MEDICAID ==
[2022-02-18] MEDS ORDERED: Acetaminophen/HYDROcodone 325-5 MG Tab PO ONE (01:11)
[2022-02-18] MEDS ORDERED: Ketorolac 30 MG/ML SDV IM ONE (01:11)
== END 2022-02-18 02:15 | disposition home or self-care (01) ==
LOC: FB.ED 00:54
DX: S93.401A Sprain of unspecified ligament of right ankle, initial encounter (principal); Z88.0 Allergy status to penicillin; E66.9 Obesity, unspecified; F17.210 Nicotine dependence, cigarettes, uncomplicated; Z68.36 Body mass index [BMI] 36.0-36.9, adult; X50.1XXA Overexertion from prolonged static or awkward postures, initial encounter
CPT/HCPCS: 73610-RT; 96372; 99281; 99283; A9270-GY; J1885

== ENCOUNTER 2022-05-13 01:08 | Emergency (ER) | payer MEDICAID ==
[2022-05-13] MEDS ORDERED: Sodium Chloride 0.9% 10 ML Syringe FLUSH PRN (01:25)
[2022-05-13] MEDS ORDERED: Morphine 4 MG/ML VIAL IVPUSH ONE (01:26)
[2022-05-13] MEDS ORDERED: Prochlorperazine 10 MG/2 ML SDV IVPUSH ONE (01:33)
[2022-05-13] MEDS ORDERED: Sodium Chloride 0.9% 1,000 ML IV SCH (01:45)
[2022-05-13] MEDS ORDERED: Iopamidol 755 Mg/ML 100 ML Bottle IV ONE (01:54)
[2022-05-13 01:59] LABS: ESTIMATED GFR 97 mL/min (>60)
== END 2022-05-13 02:58 | disposition home or self-care (01) ==
LOC: FB.ED 01:08
DX: K52.9 Noninfective gastroenteritis and colitis, unspecified (principal); E87.1 Hypo-osmolality and hyponatremia; E11.65 Type 2 diabetes mellitus with hyperglycemia; J45.909 Unspecified asthma, uncomplicated; E66.9 Obesity, unspecified; Z68.33 Body mass index [BMI] 33.0-33.9, adult; Z88.0 Allergy status to penicillin
CPT/HCPCS: 36415; 74177; 80053; 82150; 83690; 85025; 96361; 96374; 96375; 99284; J0780; J2270; J3490; J7030; Q9967

== ENCOUNTER 2023-05-20 19:54 | Emergency (ER) | payer MEDICAID | END 2023-05-20 20:40 | disposition home or self-care (01) | LOC: FB.ED 19:54 | DX: L53.9 Erythematous condition, unspecified (principal); E78.00 Pure hypercholesterolemia, unspecified; K21.9 Gastro-esophageal reflux disease without esophagitis; E11.9 Type 2 diabetes mellitus without complications; E66.9 Obesity, unspecified; F17.210 Nicotine dependence, cigarettes, uncomplicated; Z86.16 Personal history of COVID-19; Z90.49 Acquired absence of other specified parts of digestive tract; Z90.710 Acquired absence of both cervix and uterus; Z79.899 Other long term (current) drug therapy; Z88.0 Allergy status to penicillin; Z88.8 Allergy status to other drugs, medicaments and biological substances; Z68.35 Body mass index [BMI] 35.0-35.9, adult | CPT/HCPCS: 99282; 99283 ==

== ENCOUNTER 2023-06-07 22:44 | Emergency (ER) | payer MEDICAID, OTHER ==
[2023-06-07] MEDS ORDERED: cefTRIAXone 1 GM Vial IM ONE (23:32)
== END 2023-06-08 00:40 | disposition home or self-care (01) ==
LOC: FB.ED 22:44
DX: L03.113 Cellulitis of right upper limb (principal); E78.00 Pure hypercholesterolemia, unspecified; J45.909 Unspecified asthma, uncomplicated; K21.9 Gastro-esophageal reflux disease without esophagitis; E11.9 Type 2 diabetes mellitus without complications; E66.9 Obesity, unspecified; Z90.49 Acquired absence of other specified parts of digestive tract; Z90.710 Acquired absence of both cervix and uterus; Z79.899 Other long term (current) drug therapy; Z88.0 Allergy status to penicillin; Z88.1 Allergy status to other antibiotic agents; Z68.36 Body mass index [BMI] 36.0-36.9, adult
CPT/HCPCS: 96372; 99283; J0696

== ENCOUNTER 2023-08-24 04:03 | Emergency (ER) | payer MEDICAID ==
[2023-08-24] MEDS ORDERED: Sodium Chloride 0.9% 10 ML Syringe FLUSH PRN (04:27)
[2023-08-24] MEDS: Sodium Chloride 0.9% 1,000 ML IV SCH (04:34)
[2023-08-24] MEDS: Ketorolac 30 MG/ML SDV IVPUSH ONE (04:34)
[2023-08-24 04:44] LABS: BASOPHILS ABSOLUTE AUTO 0.1 x10-3/uL (0.0-0.1); BASOPHILS PERCENT AUTO 0.8 % (0.2-1.5); EOSINOPHILS ABSOLUTE AUTO 0.2 x10-3/uL (0.0-0.8); EOSINOPHILS PERCENT AUTO 1.7 % (0.6-8.1); HEMATOCRIT 41.6 % (34.2-48.2); HEMOGLOBIN 13.9 g/dL (11.4-15.5); LYMPHOCYTES ABSOLUTE AUTO 3.1 x10-3/uL (1.0-4.4); LYMPHOCYTES PERCENT AUTO 25.2 % (18.4-52.1); MEAN CORPUSCULAR HEMOGLOBIN 30.6 pg (23.9-33.9); MEAN CORPUSCULAR HGB CONC 33.3 g/dL (31.9-34.8); MEAN CORPUSCULAR VOLUME 91.8 fL (76.7-100.5); MEAN PLATELET VOLUME 9.3 fL (7.1-12.4); MONOCYTES ABSOLUTE AUTO 0.8 x10-3/uL (0.3-1.0); MONOCYTES PERCENT AUTO 6.2 % (4.4-15.7); NEUTROPHILS ABSOLUTE AUTO 8.2 x10-3/uL (1.5-6.3); NEUTROPHILS PERCENT AUTO 66.1 % (30.8-76.2); PLATELET COUNT,PLT 225 x10(3)uL (151-488); RED BLOOD CELL COUNT 4.53 x10(6)uL (3.60-5.20); RED CELL DISTRIBUTION WIDTH 12.8 % (12.3-16.5); WHITE BLOOD CELL COUNT,WBC 12.4 x10-3/uL (3.0-10.3)
[2023-08-24 04:48] LABS: BLOOD UREA NITROGEN,BUN 11 mg/dL (7-18); BUN/CREATININE RATIO 13.8 (9-20); CALCIUM 8.5 mg/dL (8.6-10.2); CARBON DIOXIDE,CO2 23 mmol/L (21-32); CHLORIDE,CL 106 mmol/L (100-110); CREATININE 0.8 mg/dL (0.55-1.02); ESTIMATED GFR 97 mL/min (>60); GLUCOSE RANDOM 175 mg/dL (80-116); LIPASE 60 U/L (16-77); POTASSIUM,K 3.7 mmol/L (3.5-5.3); SODIUM,NA 140 mmol/L (135-145)
[2023-08-24 04:51] LABS: C-REACTIVE PROTEIN < 0.50 mg/dL (<0.50)
[2023-08-24 04:54] LABS: A/G RATIO 0.9; ALANINE AMINOTRANSFERASE,ALT 21 U/L (12-36); ALBUMIN 3.2 g/dL (3.5-5.2); ALKALINE PHOSPHATASE 92 IU/L (56-112); BILIRUBIN TOTAL 0.2 mg/dL (0.1-1.3); PROTEIN TOTAL,TP 6.7 g/dL (6.0-8.0)
[2023-08-24 05:03] LABS: BILIRUBIN,URINE SMALL (NEGATIVE); GLUCOSE,URINE NORMAL (NORMAL); KETONES,URINE NEGATIVE (NEGATIVE); LEUKOCYTE ESTERASE,URINE SMALL (NEGATIVE); NITRITE,URINE NEGATIVE (NEGATIVE); OCCULT BLOOD,URINE NEGATIVE (NEGATIVE); PROTEIN,URINE NEGATIVE (NEGATIVE); UROBILINOGEN,URINE NORMAL (NEGATIVE)
[2023-08-24 05:09] LABS: ASPARTATE AMNIOTRANSFERASE,AST < 2 IU/L (5-25)
[2023-08-24 05:10] LABS: APPEARANCE,URINE SLIGHTLY CLOUDY (CLEAR); BACTERIA,URINE FEW (NS); COLOR,URINE YELLOW (YELLOW); MUCUS,URINE MODERATE (NS); RBC,URINE 0-5 (0-5); SQUAMOUS EPITHELIAL CELLS,UR MODERATE (NS,R,O); WBC,URINE 0-5 (0-5)
[2023-08-24] MEDS: Pantoprazole 40 MG Vial IVPUSH ONE (05:19)
[2023-08-24] MEDS: Iopamidol 755 Mg/ML 100 ML Bottle IV SCH (06:39)
[2023-08-24 07:54] LABS: BASOPHILS ABSOLUTE AUTO 0.1 x10-3/uL (0.0-0.1); BASOPHILS PERCENT AUTO 0.5 % (0.2-1.5); EOSINOPHILS ABSOLUTE AUTO 0.2 x10-3/uL (0.0-0.8); EOSINOPHILS PERCENT AUTO 1.6 % (0.6-8.1); HEMATOCRIT 41.1 % (34.2-48.2); HEMOGLOBIN 13.6 g/dL (11.4-15.5); LYMPHOCYTES ABSOLUTE AUTO 2.2 x10-3/uL (1.0-4.4); LYMPHOCYTES PERCENT AUTO 17.6 % (18.4-52.1); MEAN CORPUSCULAR HEMOGLOBIN 30.5 pg (23.9-33.9); MEAN CORPUSCULAR HGB CONC 33.1 g/dL (31.9-34.8); MEAN CORPUSCULAR VOLUME 92.1 fL (76.7-100.5); MEAN PLATELET VOLUME 9.4 fL (7.1-12.4); MONOCYTES ABSOLUTE AUTO 0.5 x10-3/uL (0.3-1.0); MONOCYTES PERCENT AUTO 4.3 % (4.4-15.7); NEUTROPHILS ABSOLUTE AUTO 9.6 x10-3/uL (1.5-6.3); PLATELET COUNT,PLT 212 x10(3)uL (151-488); RED BLOOD CELL COUNT 4.46 x10(6)uL (3.60-5.20); RED CELL DISTRIBUTION WIDTH 12.9 % (12.3-16.5); WHITE BLOOD CELL COUNT,WBC 12.6 x10-3/uL (3.0-10.3)
== END 2023-08-24 08:29 | disposition home or self-care (01) ==
LOC: FB.ED 04:03
DX: K76.0 Fatty (change of) liver, not elsewhere classified (principal); N39.0 Urinary tract infection, site not specified; K21.9 Gastro-esophageal reflux disease without esophagitis; J45.909 Unspecified asthma, uncomplicated; E78.00 Pure hypercholesterolemia, unspecified; E66.9 Obesity, unspecified; E11.9 Type 2 diabetes mellitus without complications; Z88.0 Allergy status to penicillin; Z88.8 Allergy status to other drugs, medicaments and biological substances; Z79.899 Other long term (current) drug therapy; Z86.16 Personal history of COVID-19; Z90.49 Acquired absence of other specified parts of digestive tract; Z90.710 Acquired absence of both cervix and uterus
CPT/HCPCS: 36415; 74177; 80053; 81001; 83605; 83690; 85025; 86140; 96361; 96374; 96375; 99284; 99284-25; C9113; J1885; J7030; Q9967

== ENCOUNTER 2024-07-29 21:05 | Emergency (ER) | payer SELFPAY ==
[2024-07-29] MEDS ORDERED: traMADol 50 MG Tab PO ONE (21:06)
[2024-07-29] MEDS: Ketorolac 30 MG/ML SDV IM ONE (22:32)
[2024-07-29] MEDS: Clindamycin HCl 150 MG Cap PO ONE (22:32)
== END 2024-07-29 22:43 | disposition home or self-care (01) ==
LOC: FB.ED 21:05
DX: K04.7 Periapical abscess without sinus (principal); L03.211 Cellulitis of face; E78.00 Pure hypercholesterolemia, unspecified; J45.909 Unspecified asthma, uncomplicated; K21.9 Gastro-esophageal reflux disease without esophagitis; E11.9 Type 2 diabetes mellitus without complications; E66.9 Obesity, unspecified; Z68.34 Body mass index [BMI] 34.0-34.9, adult; F17.210 Nicotine dependence, cigarettes, uncomplicated; Z86.16 Personal history of COVID-19; Z90.49 Acquired absence of other specified parts of digestive tract; Z90.710 Acquired absence of both cervix and uterus; Z88.0 Allergy status to penicillin; Z88.8 Allergy status to other drugs, medicaments and biological substances; Z79.899 Other long term (current) drug therapy
CPT/HCPCS: 96372; 99283; A9270; J1885

== ENCOUNTER 2024-09-16 07:17 | Emergency (ER) | payer SELFPAY | END 2024-09-16 08:20 | disposition home or self-care (01) | LOC: FB.ED 07:17 | DX: J06.9 Acute upper respiratory infection, unspecified (principal); E78.00 Pure hypercholesterolemia, unspecified; E11.9 Type 2 diabetes mellitus without complications; J45.909 Unspecified asthma, uncomplicated; F17.210 Nicotine dependence, cigarettes, uncomplicated; Z86.16 Personal history of COVID-19; Z90.49 Acquired absence of other specified parts of digestive tract; Z90.710 Acquired absence of both cervix and uterus; Z88.0 Allergy status to penicillin; Z88.8 Allergy status to other drugs, medicaments and biological substances; Z79.84 Long term (current) use of oral hypoglycemic drugs; Z79.899 Other long term (current) drug therapy | CPT/HCPCS: 87428-QW; 99284 ==

== ENCOUNTER 2024-11-22 19:45 | Emergency (ER) | payer SELFPAY ==
[2024-11-22] MEDS ORDERED: Cephalexin 500 MG Cap PO ONE (19:46)
[2024-11-22] MEDS ORDERED: traMADol 50 MG Tab PO ONE (19:46)
== END 2024-11-22 20:10 | disposition home or self-care (01) ==
LOC: FB.ED 19:45
DX: K04.7 Periapical abscess without sinus (principal); E78.00 Pure hypercholesterolemia, unspecified; E11.9 Type 2 diabetes mellitus without complications; E66.9 Obesity, unspecified; Z88.1 Allergy status to other antibiotic agents; Z79.899 Other long term (current) drug therapy; Z86.16 Personal history of COVID-19
CPT/HCPCS: 99282; A9270

== ENCOUNTER 2025-04-14 21:50 | Emergency (ER) | payer MEDICAID ==
[2025-04-14] MEDS: Acetaminophen/oxyCODONE 325-5 MG Tab PO STA (22:18)
[2025-04-14] MEDS ORDERED: Acetaminophen/oxyCODONE 325-5 MG Tab ONE (22:21)
== END 2025-04-14 23:06 | disposition home or self-care (01) ==
LOC: FB.ED 21:50
DX: S50.02XA Contusion of left elbow, initial encounter (principal); K21.9 Gastro-esophageal reflux disease without esophagitis; E66.9 Obesity, unspecified; E11.9 Type 2 diabetes mellitus without complications; F17.200 Nicotine dependence, unspecified, uncomplicated; Z88.0 Allergy status to penicillin; Z88.8 Allergy status to other drugs, medicaments and biological substances; Z79.899 Other long term (current) drug therapy; Z86.16 Personal history of COVID-19; Z68.35 Body mass index [BMI] 35.0-35.9, adult; Z90.49 Acquired absence of other specified parts of digestive tract; Z90.710 Acquired absence of both cervix and uterus; W22.8XXA Striking against or struck by other objects, initial encounter
CPT/HCPCS: 73080-LT; 99283; A9270-GY